=== PATIENT | female | born 1945 | race Asian ===

== ENCOUNTER 2016-07-06 03:23 | Emergency (ER) | payer OTHER ==
[2016-07-06 03:48] LABS: BASOPHIL % 0.3 % (0-2); PLATELET COUNT 281 x10^3mcL (130-400); RED CELL DISTRIBUTION WIDTH 13.8 % (11.5-14.5)
[2016-07-06 04:04] LABS: CALCIUM 9.6 mg/dL (8.5-10.1); CARBON DIOXIDE 27.8 mmol/L (21-32); CHLORIDE SERUM 101 mmol/L (98-107); GLUCOSE SERUM 147 mg/dL (74-106); POTASSIUM SERUM 3.6 mmol/L (3.5-5.1); SODIUM SERUM 137 mmol/L (136-145)
[2016-07-06 04:09] LABS: ALBUMIN 4.1 g/dL (3.4-5.0); ALKALINE PHOSPHATASE 84 U/L (46-116); ALT/SGPT 21 U/L (14-59); AST/SGOT 20 U/L (15-37); BILIRUBIN TOTAL 0.31 mg/dL (0.20-1.00)
[2016-07-06 04:14] LABS: TOTAL PROTEIN, SERUM 8.5 g/dL (6.4-8.2)
[2016-07-06 05:29] VITALS: BP 103/50
== END 2016-07-06 05:25 | disposition home or self-care (01) ==
LOC: ED 03:23
PROVIDERS: Emergency Medicine
DX: I16.0 Hypertensive urgency (principal); I48.91 Unspecified atrial fibrillation
CPT/HCPCS: 83880